=== PATIENT | female | born 1990 | race Caucasian/White ===

== ENCOUNTER 2017-12-23 13:56 | Emergency (ER) | payer OTHER ==
[2017-12-23] MEDS ORDERED: BUFFERED LIDOCAINE 10 ML SYRINGE SUBQ STA (14:07)
[2017-12-23] MEDS ORDERED: TETANUS/DIPHTHERIA/PERTUSSIS 0.5 ML SYRINGE IM ONE (14:07)
[2017-12-23 14:09] VITALS: BP 137/87
--- NOTE | 2017-12-23 14:09 | ED Physician Documentation ---
History of Present Illness - Stated complaint Stated Complaint: FISHING HOOK IN LIP - History obtained from History obtained from: Patient - History of Present Illness Timing: Today (She was getting ready to go fishing, she has an unused fishing hook that got lodged in her upper lip. Tetanus is unknown.) Review of Systems Constitutional: reports: Reviewed and negative Nose: reports: Reviewed and negative Throat: reports: Reviewed and negative PD PAST MEDICAL HISTORY - Allergies Allergies/Adverse Reactions: Allergies Allergy/AdvReac Type Severity Reaction Status Date / Time No Known Drug Allergies Allergy Verified 12/23/17 14:07 PD ED PE NORMAL - Vitals Vital signs reviewed: Yes - General General: Alert and oriented X 3, No acute distress - HEENT HEENT: Other (There is a small fishing hook lodge in her upper lip on the left side.) - Neuro Neuro: Alert and oriented X 3, Normal speech - Psych Psych: Normal mood, Normal affect Results - Vitals Vitals: Vital Signs - 24 hr 12/23/17 14:03 Temperature 37.2 C Heart Rate 76 Respiratory 16 Rate Blood Pressure 137/87 H O2 Saturation 100 Oxygen O2 Source Room air Procedures - FB removal FB location: Subcutaneous (upper liip) FB removal preparation: Local anesthesia-specify (buffered lidocaine, 2ml) Removal method: Other (Was advanced such that the octavio was accessible, the bar was then flattened and the hook was retracted without difficulty.) Departure - Departure Disposition: 01 Home, Self Care Clinical Impression: Fishing hook foreign body Qualifiers: Encounter type: initial encounter Qualified Code(s): W45.8XXA - Other foreign body or object entering through skin, initial encounter Condition: Good Record reviewed to determine appropriate education?: Yes Instructions: ED Wound Care Comments: Your blood pressure was elevated today on check into the emergency department. This does not mean that you have hypertension, it is a common phenomenon to come to the emergency department and have elevated blood pressure. I recommend that you see your primary care physician within the week to have it rechecked when you are feeling better.
== END 2017-12-23 14:41 | disposition home or self-care (01) ==
LOC: ED 13:56
DX: S00.551A Superficial foreign body of lip, initial encounter (principal); W45.8XXA Other foreign body or object entering through skin, initial encounter; Z23 Encounter for immunization; R03.0 Elevated blood-pressure reading, without diagnosis of hypertension
CPT/HCPCS: 90471; 99282; 99283